=== PATIENT | male | born 1955 | race Caucasian/White ===

== ENCOUNTER 2018-06-12 16:19 | Emergency (ER) | payer OTHER ==
[2018-06-12 17:51] LABS: ADD UMIC YES; UR ASCORBIC ACID NEGATIVE (NEGATIVE); UR BACTERIA FEW /HPF (NONE SEEN); UR BILIRUBIN (Dip) NEGATIVE (NEGATIVE); UR BLOOD (Dip) 1+ mg/dL (NEGATIVE); UR CLARITY CLEAR (CLEAR); UR COLOR STRAW (YELLOW); UR GLUCOSE (Dip) NEGATIVE (NEGATIVE); UR KETONES (Dip) NEGATIVE (NEGATIVE); UR LEUKOCYTE ESTERASE (Dip) 1+ Leu/ul (NEGATIVE); UR NITRITE (Dip) NEGATIVE (NEGATIVE); UR RBC 0 /HPF (0-5); UR SPECIFIC GRAVITY (Dip) 1.003 (1.003-1.030); UR TOTAL PROTEIN (Dip) NEGATIVE (NEGATIVE); UR UROBILINOGEN (Dip) NEGATIVE (NEGATIVE); UR WBC 6 /HPF (0-5)
[2018-06-12] MEDS: CIPROFLOXACIN 500 MG TAB PO (18:56)
== END 2018-06-12 19:01 | disposition home or self-care (01) ==
LOC: FTE 16:19
DX: N30.00 Acute cystitis without hematuria (principal)
CPT/HCPCS: 81001; 87086; 99283

== ENCOUNTER → 2019-02-06 | Emergency (ER) | payer MEDICARE, OTHER ==
[2019-02-06] MEDS: predniSONE 20 MG TAB PO (14:14)
== END | disposition home or self-care (01) ==
LOC: FTE 13:00
DX: R21 Rash and other nonspecific skin eruption (principal)
CPT/HCPCS: 99283